=== PATIENT | female | born 2000 | race Caucasian/White ===

== ENCOUNTER 2024-03-29 09:28 | Emergency (ER) | payer SELFPAY ==
[2024-03-29] VITALS (11 sets, daily range): BP systolic 111–157; BP diastolic 63–137
[~2024-03-29] VITALS: Ht 152.4 cm; Wt 79.3 kg
[~2024-03-29 09:28] MED LIST: AMOXICILLIN500 MG PO; NAPROXEN375 MG PO
[2024-03-29] MEDS ORDERED: KETOROLAC TROMETHAMINE 30 MG/ML SDV IV STA (09:40)
[2024-03-29] MEDS ORDERED: ONDANSETRON HCl 4 MG/2 ML SDV IV STA (09:40)
[2024-03-29] MEDS ORDERED: MORPHINE SULFATE 4 MG/ML VIAL IV STA (09:40)
[2024-03-29] MEDS ORDERED: SODIUM CHLORIDE 0.9% 1,000 ML IV STA (09:40)
[2024-03-29 10:20] LABS: BASO% 0.3 % (0-3); EOS% 1.4 % (0-8); HEMATOCRIT 39.1 % (37.0-47.0); HEMOGLOBIN 12.6 g/dl (12.0-16.0); IMMATURE GRANULOCYTES 0.3 % (0.0-5.0); LYMPH% 25.7 % (15-41); MEAN CELL VOLUME 85.6 fL CALC (80.0-100.0); MEAN CORPUSCULAR HGB 27.6 pG CALC (26.0-32.0); MEAN CORPUSCULAR HGB CONC 32.2 g/dL CAL (32.0-36.0); MONO% 7.6 % (2-13); NEUT# 9.31 thou/uL (2.00-7.15); NEUT% 64.7 % (42-76); RED BLOOD COUNT 4.57 mill/uL (4.20-5.60); RED CELL DISTRI WIDTH 13.5 % (11.5-15.5)
[2024-03-29 10:22] LABS: ALBUMIN 4.5 g/dL (3.2-5.0); BILIRUBIN, TOTAL 0.6 mg/dL (0.02-1.3); CREATININE 0.6 mg/dL (0.5-1.0); TOTAL PROTEIN 8.1 g/dL (6.3-8.2)
[2024-03-29] MEDS ORDERED: IBUPROFEN600 MG PO (12:09)
[2024-03-29] MEDS ORDERED: ZOFRAN4 MG/TAB PO (12:09)
[2024-03-29 12:11] LABS: URINE BLOOD DIPSTICK Large (NEGATIVE); URINE GLUCOSE - DIPSTICK Negative (NEGATIVE); URINE KETONE Trace mg/dL (NEGATIVE); URINE LEUK ESTERASE Negative (NEGATIVE); URINE NITRITE - DIPSTICK Negative (Negative); URINE PROTEIN - DIPSTICK 30 mg/dL (NEG-TRACE); URINE SPECIFIC GRAVITY 1.025
[2024-03-29 12:12] LABS: URINE COLOR Yellow; URINE RBC 25-50 RBC/hpf (0-5)
[2024-03-29 12:13] LABS: URINE EPITHELIAL CELLS FEW EPI/hpf (0-FEW)
== END 2024-03-29 12:40 | disposition home or self-care (01) | DRG 694 ==
LOC: ED 09:28
PROVIDERS: Emergency Medicine
DX: N20.0 Calculus of kidney (principal); F17.290 Nicotine dependence, other tobacco product, uncomplicated